=== PATIENT | female | born 1945 | race Two or more races ===

== ENCOUNTER 2022-12-23 08:14 | Emergency (ER) | payer OTHER ==
[2022-12-23 08:21] VITALS: BP 120/54; RESP 18; TEMP 98.3; BMI 28.1
[2022-12-23] MEDS ORDERED: SODIUM CHLORIDE 1,000 ML IV STA (08:53)
[2022-12-23] MEDS ORDERED: ACETAMINOPHEN 1000 MG/100 ML BAG IVPB ONE (08:53)
[2022-12-23] MEDS ORDERED: ACETAMINOPHEN INJECTION 100 ML IVPB ONE (08:59)
[2022-12-23 09:50] LABS: BASO % 0.6 % (0-2.0); HEMATOCRIT 38.4 % (32.4-45.2); HEMOGLOBIN 12.5 GM/dL (10.7-15.3); LYMPH % 13.7 % (8-40); MCH 26.8 pg (25.7-33.7); MCHC 32.6 g/dl (32.0-36.0); MEAN CELL VOLUME 82.3 fl (80-96); MEAN PLT VOLUME 8.7 fl (7.5-11.1); MONO % 7.7 % (3.8-10.2); PLATELET COUNT 256 10^3/uL (134-434); RBC 4.67 M/mm3 (3.60-5.2); RDW 14.9 % (11.6-15.6)
[2022-12-23 10:16] LABS: CALCIUM 9.1 mg/dL (8.5-10.1)
[2022-12-23 10:17] LABS: ALBUMIN 3.8 g/dl (3.4-5.0); BLOOD UREA NITROGEN 14.8 mg/dL (7-18)
[2022-12-23 10:20] LABS: CREATININE 1.2 mg/dL (0.55-1.3)
[2022-12-23 10:21] LABS: BILIRUBIN,TOTAL 0.4 mg/dL (0.2-1)
[2022-12-23 10:50] LABS: EPI CELLS >36 /uL (0-25.1); HYALINE CASTS 117 /uL (0-3.1); URINE APPEARANCE TURBID; URINE BACTERIA 71 /uL (0-1359); URINE BILIRUBIN NEGATIVE (NEGATIVE); URINE COLOR DK YELLOW; URINE GLUCOSE (UA) NEGATIVE (NEGATIVE); URINE KETONE TRACE (NEGATIVE); URINE LEUK ESTERASE NEGATIVE (NEGATIVE); URINE NITRITE NEGATIVE (NEGATIVE); URINE PROTEIN 3+ (NEGATIVE)
[2022-12-23 13:39] VITALS: PULSE 65
[2022-12-23 14:38] LABS: URINE RBC 57.2 /uL (0-23.9); URINE WBC 12.7 /uL (0-25.8)
== END 2022-12-23 13:39 | disposition home or self-care (01) ==
LOC: JER 08:14
PROC: 3E033GC Introduction of Other Therapeutic Substance into Peripheral Vein, Percutaneous Approach (ICD-10-PCS; principal; 2022-12-23)
DX: R51.9 Headache, unspecified (principal); R31.21 Asymptomatic microscopic hematuria
CPT/HCPCS: 0241U-QW; 36415; 70450-TC; 80053; 81003; 85025; 87086; 99285-25